=== PATIENT | male | born 1990 | race Caucasian/White ===

== ENCOUNTER 2016-10-22 11:15 | Emergency (ER) | payer BC ==
[~2016-10-22] VITALS: Ht 185.4 cm; Wt 91.0 kg
[2016-10-22] MEDS ORDERED: KETOROLAC 30MG/ML VIAL IV STA (18:22)
[2016-10-22] MEDS ORDERED: FOLIC ACID 1 MG, THIAMINE HCL 100 MG, MVI, ADULT NO.1 10 ML in DEXTROSE 5% WATER 1,000 ML IV ONE ×4 (18:30)
[2016-10-22 19:10] LABS: BASOPHILS % 0.8 % (0.0-2.0); EOSINOPHILS % 3.3 % (0.0-5.0); HEMATOCRIT. 44.5 % (42.0-52.0); HEMOGLOBIN. 15.5 g/dL (14.0-18.0); LYMPHOCYTES % 37.8 % (20.0-50.0); MEAN CORPUSCULAR HEMOGLOBIN 31.8 pg (28.0-32.0); MEAN CORPUSCULAR VOLUME 91.5 fL (80.0-94.0); MEAN PLATELET VOLUME 8.8 fl (7.4-10.4); NEUTROPHILS % 47.1 % (40.0-76.0); PLATELET 201 x1000/uL (130-400); RED BLOOD CELL COUNT 4.86 mill/uL (4.7-6.1); RED CELL DISTRIBUTION WIDTH 12.4 % (11.6-14.6)
[2016-10-22 19:11] LABS: CHLORIDE 105 mEq/L (98-107)
[2016-10-22 19:18] LABS: CLARITY URINE CLEAR (CLEAR); COLOR URINE DARK YELLOW (YELLOW); GLUCOSE URINE NEGATIVE (NEGATIVE); KETONES URINE 2+ (NEGATIVE); LEUKOCYTE ESTERASE URINE TRACE (NEGATIVE); NITRITE URINE NEGATIVE (NEGATIVE); OCCULT BLOOD URINE NEGATIVE (NEGATIVE); PH URINE 6.5 (4.5-8.0); PROTEIN URINE 1+ (NEGATIVE); SPECIFIC GRAVITY URINE 1.031 (1.005-1.030)
[2016-10-22 19:21] LABS: CARBON DIOXIDE 23 mEq/L (21-32); ETHANOL BLOOD < 10 mg/dL
[2016-10-22 19:33] LABS: *AMPHETAMINES SCREEN URINE PRESUMTIVE POSITIVE (NEGATIVE); *BARBITURATES SCREEN URINE NEGATIVE (NEGATIVE); *BENZODIAZEPINES SCREEN URINE NEGATIVE (NEGATIVE); *COCAINE SCREEN URINE NEGATIVE (NEGATIVE); CANNABINOID URINE SCREEN NEGATIVE (NEGATIVE); METHADONE URINE SCREEN NEGATIVE (NEGATIVE); OPIATES URINE SCREEN NEGATIVE (NEGATIVE); PHENCYCLIDINE URINE SCREEN NEGATIVE (NEGATIVE)
[2016-10-22 22:20] VITALS: BP 135/70
== END 2016-10-22 22:31 | disposition home or self-care (01) ==
LOC: ER 19:47
DX: F15.10 Other stimulant abuse, uncomplicated (principal); F19.10 Other psychoactive substance abuse, uncomplicated; N32.89 Other specified disorders of bladder; I86.1 Scrotal varices; L25.9 Unspecified contact dermatitis, unspecified cause; N49.2 Inflammatory disorders of scrotum; F17.210 Nicotine dependence, cigarettes, uncomplicated
CPT/HCPCS: 36415; 76870; 80053; 80305; 81001; 83690; 85025; 93976; 96365; 96366; 96375; 99285; G0482; J1885; J3411; J3490; J7070; Z7610

== ENCOUNTER 2023-12-23 04:43 | Emergency (ER) | payer BC ==
[~2023-12-23] VITALS: Ht 177.8 cm; Wt 85.0 kg
[2023-12-23 04:48] VITALS: TEMP 98; O2SAT 98
[2023-12-23] MEDS ORDERED: LORAZEPAM 1MG TABLET PO ONE (05:45)
[2023-12-23] MEDS: CHLORDIAZEPOXIDE 25MG CAPSULE PO ONE (06:10)
[2023-12-23 06:28] VITALS: BP 187/107; PULSE 137; RESP 20; O2SAT 99
[2023-12-23] MEDS: LORAZEPAM 1MG TABLET PO ONE (06:59)
[2023-12-23] MEDS: DIPHENHYDRAMINE 50MG CAPSULE PO ONE (07:24)
== END 2023-12-23 08:56 | disposition home or self-care (01) ==
LOC: ER 04:43
DX: F15.10 Other stimulant abuse, uncomplicated (principal); F10.129 Alcohol abuse with intoxication, unspecified; E78.00 Pure hypercholesterolemia, unspecified; I10 Essential (primary) hypertension; Z90.89 Acquired absence of other organs; Y90.9 Presence of alcohol in blood, level not specified
CPT/HCPCS: 99283; Q0163